=== PATIENT | female | born 1985 ===

== ENCOUNTER 2023-03-21 03:12 | Inpatient (IN) | payer BC ==
[2023-03-21] MEDS: Lactated Ringers 1,000 ML IV SCH ×3 (03:35→04:47)
[2023-03-21] MEDS ORDERED: Sodium Chloride 0.9% 2.5 ML Syringe FLUSH PRN (03:47)
[2023-03-21] MEDS ORDERED: Sodium Chloride 0.9% 10 ML Syringe FLUSH PRN (03:47)
[2023-03-21] MEDS ORDERED: Sodium Chloride 0.9% 20 ML SDV IV PRN (03:47)
[2023-03-21] MEDS ORDERED: Citric Acid/Sodium Citrate Solution 30 ML Cup PO ONE (03:47)
[2023-03-21] MEDS ORDERED: ceFAZolin 2 GM in Sodium Chloride 0.9% 50 ML IV ONE (03:54)
[2023-03-21] MEDS ORDERED: Ondansetron 4 MG/2 ML SDV IVPUSH PRN ×2 (03:54→05:06)
[2023-03-21] MEDS ORDERED: Oxytocin/0.9 % Sodium Chloride 30 UNIT/500 ML BAG IV SCH (04:00)
[2023-03-21 04:04] LABS: HEMATOCRIT 36.6 % (36.0-46.0); HEMOGLOBIN 12.6 g/dL (12.0-16.0); MEAN CORPUSCULAR HGB CONC 34.4 g/dL (31.0-37.0); MEAN CORPUSCULAR VOLUME 84.1 fL (80.0-98.0); MEAN PLATELET VOLUME 11.5 fL (7.40-12.00); RED BLOOD CELL COUNT 4.35 M/uL (4.30-5.90); WHITE BLOOD CELL COUNT,WBC 10.88 K/uL (4.0-11.0)
[2023-03-21] MEDS ORDERED: Water For Injection, Sterile 20 ML ONE (04:37)
[2023-03-21] MEDS ORDERED: Dexmedetomidine 200 MCG/2 ML SDV ONE (04:37)
[2023-03-21] MEDS ORDERED: Morphine PF 10 MG/10 ML SDV ONE (04:37)
[2023-03-21] MEDS ORDERED: fentaNYL 100 MCG/2 ML SDV IVPUSH PRN (05:06)
[2023-03-21] MEDS ORDERED: diphenhydrAMINE 50 MG/ML SDV IVPUSH PRN ×2 (05:06→06:40)
[2023-03-21] MEDS ORDERED: Acetaminophen/oxyCODONE 325-5 MG Tab PO PRN ×2 (05:06→06:40)
[2023-03-21] MEDS ORDERED: ePHEDrine 50 MG/ML SDV IVPUSH PRN (05:06)
[2023-03-21] MEDS ORDERED: Famotidine 20 MG/2 ML SDV IVPUSH ONE (05:13)
[2023-03-21] MEDS ORDERED: Famotidine 20 MG/2 ML SDV ONE (05:13)
[2023-03-21] MEDS ORDERED: ceFAZolin 2 GM Vial ONE (05:48)
[2023-03-21] MEDS ORDERED: Oxytocin 10 Units/1 ML SDV ONE (05:52)
[2023-03-21] MEDS ORDERED: Ropivacaine 0.5% 5 MG/ML 30 ML SDV ONE (06:18)
[2023-03-21] MEDS ORDERED: Dexamethasone 4 MG/ML 5 ML MDV ONE (06:18)
[2023-03-21] MEDS ORDERED: Bisacodyl 10 MG Supp RECTAL PRN (06:40)
[2023-03-21] MEDS ORDERED: Tranexamic Acid 1,000 MG in Sodium Chloride 0.9% 100 ML IV PRN (06:40)
[2023-03-21] MEDS ORDERED: Misoprostol 200 MCG Tab RECTAL PRN (06:40)
[2023-03-21] MEDS ORDERED: Oxytocin 10 Units/1 ML SDV IM PRN (06:40)
[2023-03-21] MEDS ORDERED: Lanolin 100% Cream 7 GM Tube TOP PRN (06:40)
[2023-03-21] MEDS ORDERED: Methylergonovine 0.2 MG/1 ML Amp IM PRN (06:40)
[2023-03-21] MEDS ORDERED: Lactated Ringers 1,000 ML IV SCH (06:45)
[2023-03-21] MEDS: Ondansetron 4 MG/2 ML SDV IVPUSH PRN ×2 (09:54→15:21)
[2023-03-21] MEDS: Ketorolac 30 MG/ML SDV IVPUSH SCH ×3 (13:40→20:37)
[2023-03-21] MEDS: Docusate Sodium 100 MG Cap PO SCH (20:38)
[2023-03-22] MEDS: Ketorolac 30 MG/ML SDV IVPUSH SCH ×3 (02:09→07:28)
[2023-03-22 05:59] LABS: HEMATOCRIT 28.7 % (36.0-46.0); HEMOGLOBIN 9.6 g/dL (12.0-16.0)
[2023-03-22] MEDS: Docusate Sodium 100 MG Cap PO SCH ×2 (08:26→20:59)
[2023-03-22] MEDS ORDERED: Ibuprofen 800 MG Tab PO PRN (15:00)
[2023-03-23] MEDS: Acetaminophen/oxyCODONE 325-5 MG Tab PO PRN ×2 (02:42→09:29)
[2023-03-23] MEDS: Docusate Sodium 100 MG Cap PO SCH (08:26)
== END 2023-03-23 12:30 | disposition home or self-care (01) | DRG 540 ==
LOC: MW.OBCHECK 03:12 → MW.OB 03:13 → MW.OBCHECK 03:14 → MW.OB 03:14 → OBSVTOIN 03:14 → INTOOBSV 03:14 → OBSVTOIN 03:42 → MW.OB 12:48
PROVIDERS: ADMIT Obstetrics & Gynecology; ATTEND Obstetrics & Gynecology
PROC: 10D00Z1 Extraction of Products of Conception, Low, Open Approach (ICD-10-PCS; principal; 2023-03-21)
DX: O42.02 Full-term premature rupture of membranes, onset of labor within 24 hours of rupture (principal); O34.211 Maternal care for low transverse scar from previous cesarean delivery; O77.0 Labor and delivery complicated by meconium in amniotic fluid; O24.420 Gestational diabetes mellitus in childbirth, diet controlled; Z37.0 Single live birth; Z3A.37 37 weeks gestation of pregnancy
CPT/HCPCS: 01961; 36415; 64488; 85014; 85018; 85027; 86592; 86850; 86900; 86901; A9270-GY; J0131; J0690; J1100; J1885; J2274; J2405; J2590; J2795; J3490; J7120